=== PATIENT | male | born 1975 | race Caucasian/White ===

== ENCOUNTER 2020-02-10 10:17 | Day surgery (SDC) | payer SELFPAY ==
[2020-02-10] MEDS ORDERED: LIDOCAINE 1% INJ-PF (10 MG/ML) 30 ML SDV ONE (13:10)
--- NOTE | 2020-02-10 13:38 | PDOC H&P ---
History of Present Illness Admission Date/PCP: February 10, 2020 Patient complains of: Syncope History of Present Illness: SERGE VASQUEZ is a 44 year old male With the following active problems 1. Atrial flutter status post catheter ablation 2010 2. Chronic not cardiac dependence 3. Nicotine dependence 4. Sciatica 5. Right bundle branch block 6. Left anterior fascicular block 7. Alcohol abuse Patient has had at least 2 dizzy spells. They are not typical for cardiac syncope. At least on 1 occasion his urine tox screen was positive for cannabinoids. There is also questionable seizure activity. We discussed implantation of loop recorder to further ascertain cause of syncope and exclude cardiac causes of syncope. He does have some conduction disease including bifascicular block with right bundle branch block and left anterior fascicular block but his history of syncope is not quite suggestive of cardiac syncope. Past Medical History Cardiac Medical History: Denies: Coronary Artery Disease, Myocardial Infarction, Hypertension Pulmonary Medical History: Denies: Asthma, Bronchitis, Chronic Obstructive Pulmonary Disease (COPD), Pneumonia Neurological Medical History: Comment Only: Seizures - R/O Musculoskeltal Medical History: Denies: Arthritis Hematology: Denies: Anemia Social History Smoking Status: Current Every Day Smoker Family History Parental Family History Reviewed: No - No familial illnesses Children Family History Reviewed: NA Sibling(s) Family History Reviewed.: NA Review of Systems Constitutional: PRESENT: as per HPI Neurological: PRESENT: syncope Physical Exam Vital Signs: Temp Pulse Resp BP Pulse Ox 98.2 F 63 16 129/88 H 100 02/10/20 12:29 02/10/20 12:29 02/10/20 12:29 02/10/20 12:29 02/10/20 12:29 General appearance: PRESENT: no acute distress, cooperative, well-developed, well-nourished Head exam: PRESENT: atraumatic, normocephalic Eye exam: PRESENT: conjunctiva pink, EOMI Respiratory exam: PRESENT: symmetrical, unlabored Pulses: PRESENT: normal radial pulses GI/Abdominal exam: PRESENT: soft Rectal exam: PRESENT: deferred Musculoskeletal exam: PRESENT: normal inspection Neurological exam: PRESENT: alert, awake, oriented to person, oriented to place, oriented to time, oriented to situation Psychiatric exam: PRESENT: appropriate affect Skin exam: PRESENT: dry, intact Results EKG Comments: Left ventricular ejection fraction 50 to 55% (05/30/2019). No aortic stenosis Twelve-lead EKG 02/05/2020. Independently viewed by me. Sinus rhythm, 67 bpm, right bundle branch block, left anterior fascicular block, ME duration is 196 ms. Assessment & Plan - Diagnosis (1) Syncope Qualifiers: Syncope type: unspecified Qualified Code(s): R55 - Syncope and collapse Is this a current diagnosis for this admission?: Yes Plan: We will proceed with loop recorder implantation to further ascertain causes of syncope. There is questionable history that supports seizure activity and also drug screen was positive for cannabinoids on a background of narcotic use and alcohol dependency issues. With these in mind we elected to proceed with injectable loop recorder implantation for continued cardiac rhythm monitoring. Risk and benefits were discussed with the patient. All questions were answered. Risk include but are not limited to infection, bleeding, device extrusion.
--- NOTE | 2020-02-10 13:42 | Progress Note ---
Provider Note Provider Note: Date 02/10/2020 Attending MD Emmanuel Wasserman MD Referring MD Self procedure Loop recorder implant Indication Syncope Complication None EBL <2cc Description of Procedure The patient was brought to the electrophysiology laboratory after informed consent was obtained. He was placed in the supine position and the left chest was prepared and draped in a sterile fashion. The electrocardiogram, blood pressure, and oxygenation were monitored intra- and post-procedure. After using buffered lidocaine 1% with epinephrine (1/100,000) for local anesthesia to the left parasternal subcutaneous area, the [employer] Linq insertion tool was used to make a 1 cm incision. The subcutaneous tissues were dissected using the Linq insertion tool and the device was deployed using the insertion tool. Poly- cyanoacrylate solution was applied to the site and a sterile dressing was applied. He tolerated the procedure well and there were no complications. The attending physician, Emmanuel Wasserman MD, was present for the entire procedure and for interpretation of data. Device Information Monitor Model # Reveal LINQ LNQ 11 Relay Shop Tester: [employer] Serial # [id number] Location: Left anterior chest wall 4th LICS Settings Tachy 380 ms (158 bpm) 16 beats Luis 2000 ms (30 bpm) 4 beats Contrast 0 cc Fluoro time 0 minutes Conclusion Successful implant of loop recorder LINQ
--- NOTE | 2020-02-10 13:45 | Discharge Summary ---
Discharge Summary (SDC) - Discharge Final Diagnosis: Syncope Date of Surgery: 02/10/20 Discharge Date: 02/10/20 Condition: Good Forms: Discharge POC-Surgical Service Discharge Diet: As Tolerated Discharge Activity: Activity As Tolerated
[2020-02-10 13:49] VITALS: BP 144/82
== END 2020-02-10 13:50 | disposition home or self-care (01) ==
LOC: CCL 10:17
PROVIDERS: ATTEND Internal Medicine
DX: R55 Syncope and collapse (principal); F17.210 Nicotine dependence, cigarettes, uncomplicated; Z03.818 Encounter for observation for suspected exposure to other biological agents ruled out; I45.2 Bifascicular block; F10.10 Alcohol abuse, uncomplicated
CPT/HCPCS: 87635; 33285; J3490; C9803